=== PATIENT | female | born 1955 | race Caucasian/White ===

== ENCOUNTER 2018-01-01 12:20 | Emergency (ER) | payer MEDICARE ==
[~2018-01-01] VITALS: Ht 162.6 cm; Wt 60.0 kg
[2018-01-01 12:42] VITALS: BP 122/85
== END 2018-01-01 13:33 | disposition home or self-care (01) ==
LOC: ED 13:00
DX: Z76.5 Malingerer [conscious simulation] (principal)
CPT/HCPCS: 99283